=== PATIENT | female | born 1965 | race Caucasian/White ===

== ENCOUNTER → 2020-10-30 | Outpatient (CLI) | payer OTHER ==
--- NOTE | 2020-10-30 21:21 | MR ---
EXAMINATION TYPE: MR brain wo con DATE OF EXAM: 10/30/2020 COMPARISON: None HISTORY: Unspecified dementia, history of left side hearing loss, history of head injury Standard multiplanar, multisequence MRI departmental protocol Multiplanar, multisequence images of the brain were acquired. Diffusion weighted imaging was performe d. FINDINGS: No diffusion restriction. Minimal burden of periventricular and subcortical T2/FLAIR signal abnormality likely on the basis of chronic ischemic microangiopathic change. No acute intracranial h emorrhage. The cerebellum, brainstem and spinal cord have normal signal. Midline structures are within normal li mits. Subarachnoid basal cisterns are maintained. No hydrocephalus. The arterial flow voids are maintained. Partial opacification of the left maxillary sinus. The remaining paranasal sinuses, ethmoid and masto id air cells are clear. The globes and orbits are within normal limits. IMPRESSION: Unremarkable noncontrast MRI brain.
== END | disposition home or self-care (01) ==
LOC: RADMRIMAIN 16:54
PROVIDERS: ATTEND Family Medicine
DX: F03.90 Unspecified dementia, unspecified severity, without behavioral disturbance, psychotic disturbance, mood disturbance, and anxiety (principal)
CPT/HCPCS: 70551